=== PATIENT | female | born 1965 | race Asian ===

== ENCOUNTER 2017-10-25 08:05 | Outpatient (CLI) | payer OTHER ==
[2017-10-25 09:09] LABS: APPEARANCE,URINE CLEAR (CLEAR); BILIRUBIN,URINE NEGATIVE (NEGATIVE); BLOOD, URINE NEGATIVE (NEGATIVE); COLOR,URINE YELLOW (YELLOW); LEUKOCYTE ESTERASE ,URINE NEGATIVE (NEGATIVE); NITRITE, URINE NEGATIVE (NEGATIVE); PH,URINE 6.5 (5.0-9.0); UGLUCOSE NEGATIVE (NEGATIVE)
[2017-10-25 09:31] LABS: ALBUMIN 3.6 g/dL (3.4-5.0); ANION GAP 12.1 (8-16); CARBON DIOXIDE 29.9 mmol/L (21-32); CREATININE 0.6 mg/dL (0.6-1.3); THYROID STIMULATING HORMONE 1.7 uIU/mL (0.34-3.74); TOTAL BILIRUBIN 0.4 mg/dL (0.0-1.0)
[2017-10-26 09:07] LABS: FOLLICLE STIMULATING HORMONE 74.5 mIU/mL (.)
== END 2017-10-25 19:46 | disposition home or self-care (01) ==
LOC: MLB 08:05
PROVIDERS: ATTEND Family Medicine Geriatric Medicine
DX: Z13.21 Encounter for screening for nutritional disorder (principal); Z13.220 Encounter for screening for lipoid disorders; Z13.1 Encounter for screening for diabetes mellitus; N95.1 Menopausal and female climacteric states; I10 Essential (primary) hypertension
CPT/HCPCS: 36415; 80053; 81003; 82306; 82672; 83001; 83036; 84443

== ENCOUNTER 2020-05-07 07:20 | Outpatient (CLI) | payer OTHER ==
[2020-05-07 07:47] LABS: BASOPHILS # (AUTO) 0.1 K/uL (0.00-0.22); BASOPHILS % (AUTO) 0.8 % (0.0-2.0); EOSINOPHILS # (AUTO) 0.2 K/uL (0-0.4); EOSINOPHILS % (AUTO) 3.1 % (0.0-4.0); HEMOGLOBIN 13.3 g/dL (12.0-16.0); LYMPHOCYTES # (AUTO) 1.8 K/uL (2.5-16.5); LYMPHOCYTES % (AUTO) 28.7 % (20.5-51.1); MEAN CORPUSCULAR HEMOGLOBIN 33 pg (27-31); MEAN CORPUSCULAR HGB CONC 33 g/dL (33-37); MEAN CORPUSCULAR VOLUME 98.4 fL (80-94); MONOCYTES # (AUTO) 0.4 K/uL (0.8-1.0); MONOCYTES % (AUTO) 6.5 % (1.7-9.3); NEUTROPHILS # (AUTO) 3.9 K/uL (1.8-7.7); NEUTROPHILS % (AUTO) 60.9 % (42.2-75.2); PLATELET COUNT (AUTO) 271 K/uL (140-450); RED BLOOD CELL COUNT(AUTO) 4.07 MIL/uL (4.20-5.40); RED CELL DISTRIBUTION WIDTH 13.6 % (11.6-13.7); WHITE BLOOD COUNT (AUTO) 6.4 K/uL (4.8-10.8)
[2020-05-07 08:29] LABS: APPEARANCE,URINE CLOUDY (CLEAR); BILIRUBIN,URINE NEGATIVE (NEGATIVE); BLOOD, URINE NEGATIVE (NEGATIVE); COLOR,URINE DARK YELLOW (YELLOW); LEUKOCYTE ESTERASE ,URINE NEGATIVE (NEGATIVE); NITRITE, URINE NEGATIVE (NEGATIVE); PH,URINE 7.5 (5.0-9.0); UGLUCOSE NEGATIVE (NEGATIVE)
[2020-05-07 10:06] LABS: ALBUMIN 3.8 g/dL (3.4-5.0); CREATININE 0.7 mg/dL (0.6-1.3); THYROID STIMULATING HORMONE 1.62 uIU/mL (0.34-3.74); TOTAL BILIRUBIN 0.7 mg/dL (0.0-1.0)
[2020-05-07 12:25] LABS: ANION GAP 22.2 (8-16); POTASSIUM 3.9 mmol/L (3.5-5.1)
[2020-05-07 13:00] LABS: CARBON DIOXIDE 18.7 mmol/L (21-32)
[2020-05-08 09:19] LABS: FOLLICLE STIMULATING HORMONE 34.3 mIU/mL (.); T4 FREE (DIRECT) 1.24 ng/dL (0.82-1.77)
== END 2020-05-07 20:28 | disposition home or self-care (01) ==
LOC: MLB 07:20
DX: Z13.0 Encounter for screening for diseases of the blood and blood-forming organs and certain disorders involving the immune mechanism (principal); Z13.21 Encounter for screening for nutritional disorder; Z13.1 Encounter for screening for diabetes mellitus; Z13.220 Encounter for screening for lipoid disorders; I10 Essential (primary) hypertension; N95.0 Postmenopausal bleeding
CPT/HCPCS: 36415; 80053; 81003; 82306; 82672; 83001; 83036; 84439; 84443; 85025